=== PATIENT | female | born 1975 ===

== ENCOUNTER 2019-01-03 14:01 | Inpatient (IN) | payer MEDICAID, OTHER ==
[~2019-01-03] VITALS: Ht 162.6 cm; Wt 95.4 kg
[2019-01-03 14:06] VITALS: BP 117/53
[2019-01-03 15:48] LABS: MICROSCOPIC NOT IND
[2019-01-03] MEDS ORDERED: BETAMETHASONE 6 MG/ML, 5ML IM ONE (16:33)
[2019-01-03] MEDS: BETAMETHASONE 6 MG/ML, 5ML IM SCH (16:36)
[2019-01-03] MEDS ORDERED: LACTATED RINGERS 1,000 ML IVBOLUS ONE (17:30)
[2019-01-03 17:47] LABS: BASOPHILS # (AUTO) 0.09 x10^3/uL (0-0.1); BASOPHILS % (AUTO) 1 % (0-1); EOSINOPHILS # (AUTO) 0.14 x10^3/uL (0-0.4); EOSINOPHILS % (AUTO) 1 % (1-7); LYMPHOCYTES # (AUTO) 1.36 x10^3/uL (1-3.4); LYMPHOCYTES % (AUTO) 14 % (22-44); MD NO; MEAN CORPUSCULAR HEMOGLOBIN 31.2 pg (27.0-34.8); MEAN CORPUSCULAR HGB CONC 33.6 g/dL (32.4-35.8); MEAN PLATELET VOLUME 8.3 fL (7.4-10.4); MONOCYTES # (AUTO) 0.67 x10^3/uL (0.2-0.8); MONOCYTES % (AUTO) 7 % (2-9); NEUTROPHILS # (AUTO) 7.19 x10^3/uL (1.8-6.8); NEUTROPHILS % (AUTO) 76 % (42-75); PLATELET COUNT 202 x10^3/uL (130-400); RED BLOOD COUNT 4.08 x10^6/uL (3.82-5.3); RED CELL DISTRIBUTION WIDTH 14.4 % (9.6-15.2)
[2019-01-03] MEDS: LACTATED RINGERS 1,000 ML IV SCH (18:46)
[2019-01-03] MEDS ORDERED: MAGNESIUM SULFATE PMX 4GM/100M 100 ML IVPB ONE (19:30)
[2019-01-03] MEDS ORDERED: MAGNESIUM SULF. PMX 20GM/500ML 500 ML IV ONE (19:43)
[2019-01-03 20:30] VITALS: BP 119/56
[2019-01-03] MEDS ORDERED: ONDANSETRON 2MG/ML, 2ML ONE (20:46)
[2019-01-03] MEDS: MAGNESIUM SULF. PMX 20GM/500ML 500 ML IV SCH (20:49)
[2019-01-03] MEDS ORDERED: ACETAMINOPHEN 325 MG TABLET PO PRN (21:00)
[2019-01-03] MEDS ORDERED: CALCIUM CARBONATE 500 MG TAB.CHEW PO PRN (21:00)
[2019-01-03] MEDS ORDERED: ONDANSETRON 2MG/ML, 2ML IVPush PRN (21:00)
[2019-01-03] MEDS ORDERED: SODIUM CHLORIDE FLUSH 10ML SYR IVF SCH (21:00)
[2019-01-04 04:10] VITALS: BP 90/55
[2019-01-04] MEDS ORDERED: MAGNESIUM SULF. PMX 20GM/500ML 500 ML IV ONE ×2 (04:27→13:50)
[2019-01-04] MEDS: MAGNESIUM SULF. PMX 20GM/500ML 500 ML IV SCH ×2 (04:29→15:22)
[2019-01-04] MEDS: LACTATED RINGERS 1,000 ML IV SCH ×2 (06:22→19:52)
[2019-01-04 09:02] VITALS: BP 130/83
[2019-01-04] MEDS ORDERED: BETAMETHASONE 6 MG/ML, 5ML IM ONE (16:37)
[2019-01-04] MEDS: BETAMETHASONE 6 MG/ML, 5ML IM SCH (16:43)
[2019-01-04] MEDS ORDERED: DOCUSATE 100 MG CAPSULE ONE (20:51)
[2019-01-04] MEDS: DOCUSATE 100 MG CAPSULE PO SCH (21:01)
[2019-01-05] MEDS ORDERED: MAGNESIUM SULF. PMX 20GM/500ML 500 ML IV ONE (01:18)
[2019-01-05] MEDS: MAGNESIUM SULF. PMX 20GM/500ML 500 ML IV SCH (01:37)
[2019-01-05] MEDS ORDERED: DOCUSATE 100 MG CAPSULE ONE (08:44)
[2019-01-05] MEDS: DOCUSATE 100 MG CAPSULE PO SCH ×2 (08:45→21:00)
[2019-01-05] MEDS: LACTATED RINGERS 1,000 ML IV SCH (10:09)
[2019-01-05 13:45] VITALS: BP 117/59
[2019-01-05] MEDS ORDERED: PREN1TAB60 PO (13:58)
[2019-01-05 20:00] VITALS: BP 116/53
== END 2019-01-06 10:12 | disposition home or self-care (01) | DRG 566 ==
LOC: LDOP 14:01 → LDIP 17:17
PROVIDERS: ADMIT Obstetrics & Gynecology; ATTEND Obstetrics & Gynecology
PROC: 0T9B70Z Drainage of Bladder with Drainage Device, Via Natural or Artificial Opening (ICD-10-PCS; principal; 2019-01-03)
DX: O44.03 Complete placenta previa NOS or without hemorrhage, third trimester (principal); Z3A.30 30 weeks gestation of pregnancy
CPT/HCPCS: 36415; 76805; 81003; 83735; 85025; 86850; 86900; 87081; G0378; J0702; J2405; J3475; J7120

== ENCOUNTER 2019-03-08 05:11 | Inpatient (IN) | payer MEDICAID ==
[~2019-03-08] VITALS: Ht 162.6 cm; Wt 107.7 kg
[~2019-03-08 05:11] MED LIST: PREN1TAB60 PO
[2019-03-08] MEDS ORDERED: OXYTOCIN 30U/ 0.9% NaCL 500ML 500 ML IV ONE (05:16)
[2019-03-08] MEDS ORDERED: OXYTOCIN 30U/ 0.9% NaCL 500ML 500 ML IV PRN (05:16)
[2019-03-08] MEDS ORDERED: D5%-LACTATED RINGERS 1,000 ML IV SCH (05:16)
[2019-03-08] MEDS ORDERED: NEWBORN KIT ONE (05:18)
[2019-03-08] MEDS ORDERED: OXYTOCIN 30U/ 0.9% NaCL 500ML 500 ML ONE (05:18)
[2019-03-08 05:25] VITALS: BP 117/56
[2019-03-08] MEDS ORDERED: FENTANYL PF 100 MCG/2ML IVPush PRN (05:30)
[2019-03-08] MEDS ORDERED: TERBUTALINE 1 MG/ML, 1ML SQ PRN (05:30)
[2019-03-08] MEDS ORDERED: ONDANSETRON 2MG/ML, 2ML IVPush PRN ×2 (05:30→21:00)
[2019-03-08] MEDS ORDERED: CALCIUM CARBONATE 500 MG TAB.CHEW PO PRN (05:30)
[2019-03-08] MEDS ORDERED: TERBUTALINE 1 MG/ML, 1ML IVPush PRN (05:30)
[2019-03-08] MEDS ORDERED: FENTANYL PF 100 MCG/2ML IV PRN ×2 (05:30→21:00)
[2019-03-08] MEDS ORDERED: GLYB1TAB18 PO (05:33)
[2019-03-08] MEDS: LACTATED RINGERS 1,000 ML IV SCH ×4 (05:41→21:52)
[2019-03-08 05:42] LABS: BASOPHILS # (AUTO) 0.07 x10^3/uL (0-0.1); BASOPHILS % (AUTO) 1 % (0-1); EOSINOPHILS # (AUTO) 0.11 x10^3/uL (0-0.4); EOSINOPHILS % (AUTO) 1 % (1-7); LYMPHOCYTES # (AUTO) 1.28 x10^3/uL (1-3.4); LYMPHOCYTES % (AUTO) 15 % (22-44); MD NO; MEAN CORPUSCULAR HEMOGLOBIN 30.4 pg (27.0-34.8); MEAN CORPUSCULAR HGB CONC 33.3 g/dL (32.4-35.8); MEAN CORPUSCULAR VOLUME 91.3 fL (80-100); MEAN PLATELET VOLUME 9.1 fL (7.4-10.4); MONOCYTES # (AUTO) 0.55 x10^3/uL (0.2-0.8); MONOCYTES % (AUTO) 7 % (2-9); NEUTROPHILS # (AUTO) 6.43 x10^3/uL (1.8-6.8); NEUTROPHILS % (AUTO) 76 % (42-75); PLATELET COUNT 158 x10^3/uL (130-400); RED BLOOD COUNT 4.41 x10^6/uL (3.82-5.3); RED CELL DISTRIBUTION WIDTH 15.5 % (9.6-15.2)
[2019-03-08] MEDS ORDERED: FENTANYL PF 100 MCG/2ML ONE (10:09)
[2019-03-08] MEDS ORDERED: FENTANYL/BUPIV./NS/PF 250 ML EPIDCONT SCH ×2 (10:09→20:47)
[2019-03-08] MEDS ORDERED: FENTANYL PF 500 MCG, BUPIVACAINE/PF 0.5%, 30ML 62.5 ML in SODIUM CHLORIDE 0.9% 177.5 ML EPIDCONT SCH (10:30)
[2019-03-08] MEDS ORDERED: EPHEDRINE 50 MG/ML, 1ML IVPush PRN ×2 (10:30→21:00)
[2019-03-08] MEDS ORDERED: LACTATED RINGERS 1,000 ML IVBOLUS PRN ×2 (10:30→21:00)
[2019-03-08] MEDS ORDERED: BUPIVACAINE 0.25% ONE (11:08)
[2019-03-08] MEDS ORDERED: LIDOCAINE/PF 1.5% EPI 1:200K, 10 ML ONE (11:10)
[2019-03-08] MEDS ORDERED: ONDANSETRON 2MG/ML, 2ML ONE ×2 (12:04→20:09)
[2019-03-08] MEDS ORDERED: CEFAZOLIN 1,000 MG ONE ×2 (19:21→19:36)
[2019-03-08] MEDS ORDERED: SODIUM BICARBONATE 1 MEQ/ML, 50ML VIAL ONE (19:27)
[2019-03-08] MEDS ORDERED: OXYTOCIN 10 UNITS/ML, 1ML ONE (19:27)
[2019-03-08] MEDS ORDERED: LIDOCAINE-MPF 2% ,5ML ONE ×4 (19:28)
[2019-03-08] MEDS ORDERED: KETOROLAC 30 MG/1 ML ONE (19:36)
[2019-03-08] MEDS ORDERED: METHYLERGONOVINE 0.2 MG/ML IM ONE (19:36)
[2019-03-08] MEDS ORDERED: EPHEDRINE 50 MG/ML, 1ML ONE (19:51)
[2019-03-08] MEDS ORDERED: AZITHROMYCIN 500 MG in SODIUM CHLORIDE 0.9% 250 ML IV SCH (20:00)
[2019-03-08] MEDS ORDERED: LACTATED RINGERS 1,000 ML IV SCH (20:47)
[2019-03-08] MEDS ORDERED: CARBOPROST TROMETHAMINE 250 MCG/ML, 1ML IM PRN (21:00)
[2019-03-08] MEDS ORDERED: ONDANSETRON 2MG/ML, 2ML IV PRN ×2 (21:00)
[2019-03-08] MEDS ORDERED: DEXAMETHASONE 4 MG/ML, 1ML IV PRN (21:00)
[2019-03-08] MEDS ORDERED: KETOROLAC 30 MG/1 ML IV PRN (21:00)
[2019-03-08] MEDS ORDERED: ACETAMINOPHEN 325 MG TABLET PO PRN (21:00)
[2019-03-08] MEDS ORDERED: BISACODYL 10 MG SUPP PR PRN (21:00)
[2019-03-08] MEDS ORDERED: MEPERIDINE/PF 50 MG/ML IVPush PRN (21:00)
[2019-03-08] MEDS ORDERED: NALOXONE 0.4 MG/ML, 1ML IVPush PRN (21:00)
[2019-03-08] MEDS ORDERED: MORPHINE SULFATE 4 MG/ML, 1ML IVPush PRN ×2 (21:00)
[2019-03-08] MEDS ORDERED: METHYLERGONOVINE 0.2 MG/ML IM PRN (21:00)
[2019-03-08] MEDS ORDERED: SCOPOLAMINE PATCH, 1.5MG PATCH.TD72 TD PRN (21:00)
[2019-03-08] MEDS ORDERED: morphine SULFATE 10 MG/ML, 1ML IVPush PRN (21:00)
[2019-03-08] MEDS ORDERED: OXYcodone 5 MG/5 ML ORAL.SOL UDC PO PRN (21:00)
[2019-03-08] MEDS ORDERED: DIPHENHYDRAMINE 50 MG/ML, 1ML IVPush PRN (21:00)
[2019-03-08] MEDS: KETOROLAC 30 MG/1 ML IV SCH (21:00)
[2019-03-08] MEDS ORDERED: PROMETHAZINE 25 MG/ML, 1ML IV PRN (21:00)
[2019-03-08] MEDS ORDERED: OXYcodone 5 MG/5 ML ORAL.SOL UDC ONE (21:14)
[2019-03-08] MEDS ORDERED: MORPHINE SULFATE 4 MG/ML, 1ML ONE ×2 (21:49→22:08)
[2019-03-08] MEDS: OXYTOCIN 30U/ 0.9% NaCL 500ML 500 ML IV SCH (22:00)
[2019-03-08 22:40] VITALS: BP 120/78
[2019-03-09] MEDS: OXYcodone/APAP 5/325MG TABLET PO PRN ×5 (00:29→21:00)
[2019-03-09 00:30] VITALS: BP 115/75
[2019-03-09] MEDS: KETOROLAC 30 MG/1 ML IV SCH ×4 (03:00→21:00)
[2019-03-09 03:59] LABS: BASOPHILS # (AUTO) 0.04 x10^3/uL (0-0.1); BASOPHILS % (AUTO) 0 % (0-1); EOSINOPHILS # (AUTO) 0.01 x10^3/uL (0-0.4); EOSINOPHILS % (AUTO) 0 % (1-7); LYMPHOCYTES # (AUTO) 0.84 x10^3/uL (1-3.4); LYMPHOCYTES % (AUTO) 7 % (22-44); MD NO; MEAN CORPUSCULAR HEMOGLOBIN 30.6 pg (27.0-34.8); MEAN CORPUSCULAR HGB CONC 33.9 g/dL (32.4-35.8); MEAN CORPUSCULAR VOLUME 90.4 fL (80-100); MONOCYTES # (AUTO) 0.55 x10^3/uL (0.2-0.8); MONOCYTES % (AUTO) 5 % (2-9); NEUTROPHILS # (AUTO) 10.81 x10^3/uL (1.8-6.8); NEUTROPHILS % (AUTO) 88 % (42-75); PLATELET COUNT 119 x10^3/uL (130-400); RED CELL DISTRIBUTION WIDTH 16.1 % (9.6-15.2)
[2019-03-09 04:15] VITALS: BP 102/58
[2019-03-09] MEDS: LACTATED RINGERS 1,000 ML IV SCH ×4 (04:48→06:56)
[2019-03-09] MEDS: OXYTOCIN 30U/ 0.9% NaCL 500ML 500 ML IV SCH ×2 (06:48→06:56)
[2019-03-09 08:07] VITALS: BP 118/75
[2019-03-09] MEDS: PRENATAL VIT/IRON/FA 1 EACH TABLET PO SCH (09:18)
[2019-03-09] MEDS: DOCUSATE 100 MG CAPSULE PO PRN ×2 (09:18→20:59)
[2019-03-09 11:54] VITALS: BP 118/76
[2019-03-09] MEDS: SIMETHICONE 80 MG CHEW TAB PO PRN ×2 (15:18→20:59)
[2019-03-09 16:55] VITALS: BP 114/71
[2019-03-09 20:02] VITALS: BP 115/72
[2019-03-10] MEDS: OXYTOCIN 30U/ 0.9% NaCL 500ML 500 ML IV SCH ×3 (02:48→22:48)
[2019-03-10] MEDS: KETOROLAC 30 MG/1 ML IV SCH ×3 (03:40→15:44)
[2019-03-10] MEDS: SIMETHICONE 80 MG CHEW TAB PO PRN ×2 (03:56→21:13)
[2019-03-10] MEDS: OXYcodone/APAP 5/325MG TABLET PO PRN ×5 (03:57→21:13)
[2019-03-10 08:15] VITALS: BP 109/68
[2019-03-10] MEDS: PRENATAL VIT/IRON/FA 1 EACH TABLET PO SCH (08:40)
[2019-03-10] MEDS: DOCUSATE 100 MG CAPSULE PO PRN (08:41)
[2019-03-10] MEDS: LACTATED RINGERS 1,000 ML IV SCH ×2 (12:48→22:48)
[2019-03-10 19:43] VITALS: BP 127/78
[2019-03-11] MEDS: IBUPROFEN 600 MG TABLET PO PRN ×3 (00:30→16:24)
[2019-03-11] MEDS: OXYcodone/APAP 5/325MG TABLET PO PRN ×4 (04:55→20:14)
[2019-03-11 08:15] VITALS: BP 139/86
[2019-03-11] MEDS: OXYTOCIN 30U/ 0.9% NaCL 500ML 500 ML IV SCH ×2 (08:48→19:43)
[2019-03-11] MEDS: LACTATED RINGERS 1,000 ML IV SCH ×2 (08:48→19:43)
[2019-03-11] MEDS: PRENATAL VIT/IRON/FA 1 EACH TABLET PO SCH (10:06)
[2019-03-11] MEDS: DOCUSATE 100 MG CAPSULE PO PRN (10:06)
[2019-03-11] MEDS: SIMETHICONE 80 MG CHEW TAB PO PRN (12:01)
[2019-03-11 20:00] VITALS: BP_SYST 136; BP_SYST 99; BP_DIAS 59; BP_DIAS 80
[2019-03-12] MEDS: IBUPROFEN 600 MG TABLET PO PRN ×3 (01:22→13:49)
[2019-03-12] MEDS: LACTATED RINGERS 1,000 ML IV SCH (04:08)
[2019-03-12] MEDS: OXYTOCIN 30U/ 0.9% NaCL 500ML 500 ML IV SCH (04:09)
[2019-03-12 08:01] VITALS: BP 133/80
[2019-03-12] MEDS: PRENATAL VIT/IRON/FA 1 EACH TABLET PO SCH (08:12)
[2019-03-12] MEDS: DOCUSATE 100 MG CAPSULE PO PRN (08:12)
[2019-03-12] MEDS: OXYcodone/APAP 5/325MG TABLET PO PRN ×2 (08:12→13:49)
[2019-03-12] MEDS ORDERED: IBUP-1222 PO (09:37)
[2019-03-12] MEDS ORDERED: OXYC-302 PO (09:37)
[2019-03-12] MEDS ORDERED: DIPH,PERTUSS(ACELL),TET VAC/PF NC IM-VACC ONE (12:30)
== END 2019-03-12 14:00 | disposition home or self-care (01) | DRG 540 ==
LOC: LDIP 05:11 → 2NW 22:27
PROVIDERS: ADMIT Obstetrics & Gynecology; ATTEND Obstetrics & Gynecology
PROC: 10D00Z1 Extraction of Products of Conception, Low, Open Approach (ICD-10-PCS; principal; 2019-03-08)
DX: O69.81X0 Labor and delivery complicated by cord around neck, without compression, not applicable or unspecified (principal); O24.429 Gestational diabetes mellitus in childbirth, unspecified control; G89.18 Other acute postprocedural pain; O32.4XX0 Maternal care for high head at term, not applicable or unspecified; O40.3XX0 Polyhydramnios, third trimester, not applicable or unspecified; O62.2 Other uterine inertia; Z37.0 Single live birth; Z3A.39 39 weeks gestation of pregnancy; Z83.3 Family history of diabetes mellitus
CPT/HCPCS: J3490; S0020; 36415; 76815; 82803; 82962; 85025; 86592; 86850; 86900; 86923; 90715; G0378; J0456; J0690; J1885; J2405; J3010; J2210; J2270; J2590; J7050; J7120